=== PATIENT | male | born 1975 ===

== ENCOUNTER 2017-11-17 14:45 | Emergency (ER) | payer OTHER ==
[2017-11-17 15:10] VITALS: TEMP 97
--- NOTE | 2017-11-17 15:35 | ED PDOC ---
HPI: Chest Pain <Amanda Ortiz - Last Filed: 11/17/17 18:44> <Ellis Santiago III - Last Filed: 11/17/17 18:54> Time Seen by Provider: 11/17/17 15:32 Chief Complaint (Nursing): Chest Pain Additional Complaint(s): 42 YO M w/ no significant PMH presents to the ER w/ chest pain over the last 3 weeks. States he has been taking tums which sometimes relieve it for an half an hour or so but then pain reoccurs. Pain varies in location, sometimes occurs on left side of chest, sometimes the right side, or sometimes can occur down the left arm. Most recent eppisode occured when patient was driving to work. When he was in the tunnel he started having left sided chest pain, with tightness in his chest. Denies any radiation of pain. Unable to characterize the type of pain. Pain was 4/10 in intensity before the patient came in , now describes the pain as 2/10. Denies nausea, vomiting, dizziness, or diarrhea. - Patient admits to eating spicy foods and binge drinking on the weekends PMH: None PSH: Denies Allergies: Shell fish FH:None SH: Alcohol binge drinking on the weekends, Denies any illicit drug use. PMD: None (Amanda Ortiz) Supervising Attending Note <Amanda Ortiz - Last Filed: 11/17/17 18:44> - Attestation: I have personally seen and examined this patient.: Yes I have fully participated in the care of the patient.: Yes I have reviewed all pertinent clinical information: Yes <Ellis Santiago III - Last Filed: 11/17/17 18:54> - Notes: Notes:: pain free on discharge discussed results, need for followup and recommendations questions answered, BP improved (Ellis Santiago III) Past Medical History - Medical History PMH: No Chronic Diseases - Surgical History Surgical History: No Surg Hx - Family History Family History: States: No Known Family Hx - Social History Current smoker - smoking cessation education provided: No <Amanda Ortiz - Last Filed: 11/17/17 18:44> <Ellis Santiago III - Last Filed: 11/17/17 18:54> Vital Signs: Last Vital Signs Temp 97 F L 11/17/17 15:07 Pulse 91 H 11/17/17 15:07 Resp 20 11/17/17 15:07 BP 165/109 H 11/17/17 15:07 Pulse Ox 100 11/17/17 18:44 - Allergies Allergies/Adverse Reactions: Allergies Allergy/AdvReac Type Severity Reaction Status Date / Time No Known Allergies Allergy Verified 11/17/17 15:07 CHRISTIANO Risk Score for UA/NSTEMI - CHRISTIANO Risk Score Age > 64: NO 3 or more CAD Risk Factors: NO Known CAD (Stenosis greater than 50%): NO Aspirin use in past 7 days: NO Severe Angina: NO EKG ST changes greater than 0.5mm: NO Positive Cardiac Marker: NO CHRISTIANO Score: 0 Risk %: 5% <Amanda Ortiz - Last Filed: 11/17/17 18:44> Curb-65 Severity Score - CURB-65 Severity Score Confusion: No Bun >19mg/dl (>7mmol/L): No Respiratory Rate greater than/equal to 30: No Systolic BP <90 or Diastolic BP less than/equal 60mmHg: No Age >64: No Curb-65 Score: 0 Percentage 30-day mortality: 0.6% <Amanda Ortiz - Last Filed: 11/17/17 18:44> Wells Criteria for PE - Wells Criteria for Pulmonary Embolism Clinical Signs and Symptoms of DVT: No P.E is #1 Diagnosis, or Equally Likely: No Heart Rate >100: No Immobilization at least 3 days;Surgery previous 4 weeks: No Previous, objectively diagnosed PE or DVT: No Hemoptysis: No Malignancy w/treatment within 6 months, or palliative: No Total Score: 0 <Amanda Ortiz - Last Filed: 11/17/17 18:44> Review of Systems ROS Statement: Except As Marked, All Systems Reviewed And Found Negative <Amanda Ortiz - Last Filed: 11/17/17 18:44> Physical Exam - Reviewed Nursing Documentation Reviewed: Yes Vital Signs Reviewed: Yes (BP: 165/109) - Physical Exam Appears: Positive for: No Acute Distress Head Exam: Positive for: NORMAL INSPECTION Skin: Positive for: Normal Color, Warm Eye Exam: Positive for: Normal appearance ENT: Positive for: Normal ENT Inspection Neck: Positive for: Normal Cardiovascular/Chest: Positive for: Regular Rate, Rhythm Respiratory: Positive for: Normal Breath Sounds Gastrointestinal/Abdominal: Positive for: Normal Exam, Bowel Sounds Neurologic/Psych: Positive for: Alert, Oriented <Amanda Ortiz - Last Filed: 11/17/17 18:44> - Laboratory Results Result Diagrams: 11/17/17 16:02 11/17/17 16:02 - ECG ECG: Positive for: Interpreted By Me, Viewed By Me ECG Rhythm: Positive for: Normal QRS, Normal ST Segment, Sinus Rhythm O2 Sat by Pulse Oximetry: 100 - Radiology X-Ray: Interpreted by Me, Viewed By Me, Read By Radiologist X-Ray Interpretation: No Acute Disease <Amanda Ortiz - Last Filed: 11/17/17 18:44> - Laboratory Results Result Diagrams: 11/17/17 16:02 11/17/17 16:02 <Ellis Santiago III - Last Filed: 11/17/17 18:54> - Progress ED Course And Treament: CBC CMP EKG Troponin D dimer (Amanda Ortiz) Medical Decision Making <Amanda Ortiz - Last Filed: 11/17/17 18:44> <Ellis Santiago III - Last Filed: 11/17/17 18:54> Medical Decision Making: CBC: WNL CMP: WNL Chest X ray EKG: No ischemic changes noted Troponin: Negative D dimers: WNL Pepcid 20 mg given (Amanda Ortiz) Disposition - Patient ED Disposition Is Patient to be Admitted: No - Disposition Disposition: Routine/Home Disposition Time: 18:43 <Amanda Ortiz - Last Filed: 11/17/17 18:44> <Ellis Santiago III - Last Filed: 11/17/17 18:54> - Clinical Impression Clinical Impression: Acute chest pain, Chest pain - Disposition Referrals: FAMILY PROVIDER,NO [Primary Care Provider] - Condition: GOOD Additional Instructions: Followup with your doctor for further testing. Return to ER for any worse or new symptoms. Instructions: Chest Pain, Chest Pain (DC) Forms: [employer] (Burmese) Print Language: BARBADIAN
[2017-11-17 16:13] LABS: BASO # 0.1 K/uL (0.0-0.2); EOS # 0.1 K/uL (0.0-0.7); HEMOGLOBIN 16.6 g/dL (12.0-18.0); LYMPH # 1.8 K/uL (1.0-4.3); MEAN CELL VOLUME 93.4 fl (80.0-94.0); MEAN CORPUSCULAR HEMOGLOBIN 31.9 pg (27.0-31.0); MEAN CORPUSCULAR HGB CONC 34.2 g/dL (33.0-37.0); MEAN PLATELET VOLUME 8.2 fl (7.2-11.7); MONO # 0.6 K/uL (0.0-0.8); MONO % 8.3 % (0.0-10.0); NEUT # 4.4 K/uL (1.8-7.0); NEUT % 62.7 % (50.0-75.0); NRBC % 0.1 % (0.0-0.0); RBC 5.19 Mil/uL (4.40-5.90); RED CELL DISTRIBUTION WIDTH 12.7 % (11.5-14.5); WHITE BLOOD COUNT 6.9 K/uL (4.8-10.8)
[2017-11-17 16:16] LABS: ALB/GLOB RATIO 1.2 (1.0-2.1); ALBUMIN 4.5 g/dL (3.5-5.0); ALT/SGPT 30 U/L (21-72); AST/SGOT 25 U/L (17-59); BLOOD UREA NITROGEN 15 mg/dl (9-20); CALCIUM 9.5 mg/dL (8.4-10.2); GFR AFRICAN-AMERICAN > 60; GFR NON-AFRICAN AMERICAN > 60
--- NOTE | 2017-11-17 16:57 | RAD ---
HISTORY: chest pain COMPARISON: No prior. TECHNIQUE: Chest PA and lateral FINDINGS: LUNGS: No active pulmonary disease. PLEURA: No significant pleural effusion identified. No pneumothorax apparent. CARDIOVASCULAR: No radiographic findings to suggest acute or significant cardiovascular disease. OSSEOUS STRUCTURES: No significant abnormalities. VISUALIZED UPPER ABDOMEN: Normal. OTHER FINDINGS: None. IMPRESSION: No active disease.
[2017-11-17 18:56] VITALS: BP 136/92; RESP 18; O2SAT 98
[2017-11-17 19:07] VITALS: PULSE 86
== END 2017-11-17 19:08 | disposition home or self-care (01) ==
LOC: H.ER 14:45
DX: R07.9 Chest pain, unspecified (principal)